=== PATIENT | male | born 2000 | race Caucasian/White ===

== ENCOUNTER → 2020-05-15 | Outpatient (CLI) | payer OTHER ==
[2020-05-15 10:28] LABS: ABSOLUTE EOSINOPHILS 0.1 thou/uL (0.0-0.7); ABSOLUTE MONOCYTES 0.6 thou/uL (0.0-1.2); ABSOLUTE NEUTROPHILS 5.5 thou/uL (1.6-8.1); BASOPHILS 0.5 %; HEMATOCRIT 44.7 % (42.0-52.0); HEMOGLOBIN 15.5 gm/dL (14.0-18.0); LYMPHOCYTES 24.6 %; MCH 28.3 pg (26.0-34.0); MCHC 34.6 g/dL (28.0-37.0); MCV 81.7 fL (80.0-100.0); MONOCYTES 6.8 %; MPV 8.6 fl. (7.2-11.1); NUCLEATED RBCS 0 /100WBC; PLATELET COUNT* 283 thou/uL (150-400); POLYS 67.1 %; RBC 5.47 mil/uL (4.50-6.00); RDW-CV 13.8 % (10.5-14.5); WBC 8.3 thou/uL (4.0-11.0)
[2020-05-15 10:42] LABS: ALBUMIN 4.2 g/dL (3.4-5.0); ALKALINE PHOSPHATASE 105 U/L (46-116); ANION GAP 10 mmol/L (7-16); BUN 15 mg/dL (7-18); CHLORIDE 105 mmol/L (98-107); CO2 25 mmol/L (21-32); CREATININE 0.9 mg/dL (0.6-1.3); GLUCOSE 105 mg/dL (70-99); POTASSIUM 4.3 mmol/L (3.5-5.1); SGOT 42 U/L (15-37); SGPT 80 U/L (30-65); SODIUM 140 mmol/L (136-145); TOTAL BILIRUBIN 0.3 mg/dL (<0.1-1.0); TOTAL PROTEIN 8.3 g/dL (6.4-8.2)
[2020-05-15 10:43] LABS: SERUM ASSESSMENT Clear
[2020-05-15 15:25] LABS: CHOLESTEROL 133 mg/dL (<170); HDL CHOLESTEROL 33 mg/dL (>40); LDL CHOLESTEROL 59 mg/dL (<110); TRIGLYCERIDE 209 mg/dL (<150); VLDL 42 mg/dL (<40)
[2020-05-16 04:06] LABS: GLYCOHEMOGLOBIN (HGB A1C) 5.6 % (4.8-5.6)
== END ==
LOC: M.LAB 10:06
PROVIDERS: ATTEND Family Medicine
DX: E66.09 Other obesity due to excess calories (principal); Z00.00 Encounter for general adult medical examination without abnormal findings; Z13.220 Encounter for screening for lipoid disorders; Z13.1 Encounter for screening for diabetes mellitus; Z13.31 Encounter for screening for depression

== ENCOUNTER → 2021-05-14 | Outpatient (CLI) | payer OTHER ==
[2021-05-14 11:46] LABS: ABSOLUTE EOSINOPHILS 0.1 thou/uL (0.0-0.7); ABSOLUTE LYMPHOCYTES 2.3 thou/uL (0.8-5.3); ABSOLUTE MONOCYTES 0.6 thou/uL (0.0-1.2); ABSOLUTE NEUTROPHILS 6.3 thou/uL (1.6-8.1); BASOPHILS 0.5 %; EOSINOPHILS 0.7 %; HEMOGLOBIN 15.3 gm/dL (14.0-18.0); LYMPHOCYTES 25.1 %; MCH 28.2 pg (26.0-34.0); MCHC 34.8 g/dL (28.0-37.0); MONOCYTES 6.1 %; MPV 8.3 fl. (7.2-11.1); NUCLEATED RBCS 0 /100WBC; PLATELET COUNT* 276 thou/uL (150-400); POLYS 67.6 %; RBC 5.43 mil/uL (4.50-6.00); RDW-CV 13.7 % (10.5-14.5); WBC 9.3 thou/uL (4.0-11.0)
[2021-05-14 12:10] LABS: ALBUMIN 4.4 g/dL (3.4-5.0); ALKALINE PHOSPHATASE 86 U/L (46-116); ANION GAP 10 mmol/L (7-16); BUN 15 mg/dL (7-18); CALCIUM 9.3 mg/dL (8.5-10.1); CHLORIDE 106 mmol/L (98-107); CHOLESTEROL 145 mg/dL (<200); CO2 27 mmol/L (21-32); CREATININE 0.9 mg/dL (0.6-1.3); GLUCOSE 100 mg/dL (70-99); HDL CHOLESTEROL 40 mg/dL (>40); LDL CHOLESTEROL 74 mg/dL (<100); POTASSIUM 4.3 mmol/L (3.5-5.1); SGOT 28 U/L (15-37); SGPT 62 U/L (30-65); SODIUM 143 mmol/L (136-145); TC:HDL 3.6 Ratio (Not establshd); TOTAL BILIRUBIN 0.4 mg/dL (<0.1-1.0); TOTAL PROTEIN 8.8 g/dL (6.4-8.2); TRIGLYCERIDE 157 mg/dL (<150); VLDL 31 mg/dL (<40)
[2021-05-14 12:11] LABS: SERUM ASSESSMENT Clear
[2021-05-15 03:06] LABS: GLYCOHEMOGLOBIN (HGB A1C) 5.8 % (4.8-5.6)
== END ==
LOC: M.LAB 11:22
PROVIDERS: ATTEND Family Medicine
DX: Z00.00 Encounter for general adult medical examination without abnormal findings (principal); Z11.1 Encounter for screening for respiratory tuberculosis

== ENCOUNTER 2021-10-20 21:02 | Emergency (ER) | payer OTHER ==
[~2021-10-20] VITALS: Ht 177.8 cm; Wt 117.9 kg
[2021-10-20] MEDS ORDERED: TRAMADOL 50 MG50 MG PO (23:38)
[2021-10-20] MEDS ORDERED: FLEXERIL PO (23:38)
[2021-10-20] MEDS ORDERED: PREDNISONE50 MG PO (23:38)
[2021-10-21 00:02] VITALS: BP 142/65
== END 2021-10-21 00:03 | disposition home or self-care (01) ==
LOC: M.ERS 21:02
DX: M54.50 Low back pain, unspecified (principal); Z98.890 Other specified postprocedural states